=== PATIENT | male | born 1990 | race Two or more races ===

== ENCOUNTER 2018-08-10 17:39 | Emergency (ER) | payer SELFPAY ==
[~2018-08-10] VITALS: Ht 172.7 cm; Wt 81.6 kg
[2018-08-10 18:00] VITALS: BP 148/98
--- NOTE | 2018-08-10 18:41 | PHYS DOC ---
Adult General Chief Complaint Chief Complaint: MECHANICAL FALL HPI HPI Patient is a 28 year old medical presents with intermittent, throbbing mild low back pain status post falling last week Friday. He states he was on a ladder 6 steps when he fell on her left leg on pallets on the ground. Denies any loss of consciousness. States pain is worse on sitting o his buttocks.Denies any pain radiating to BLE. Denies any numbness or tingling to bilateral lower extremities. Patient denies any hematuria. (YING ANNE APRN) Review of Systems Review of Systems Constitutional: Denies fever or chills [] GI: Denies abdominal pain, nausea, vomiting, bloody stools or diarrhea [] : Denies dysuria or hematuria [] Musculoskeletal: Reports low back pain Integument: Denies rash or skin lesions [] Neurologic: Denies headache, focal weakness or sensory changes [] All other systems were reviewed and found to be within normal limits, except as documented in this note. (YING ANNE APRN) Allergies Allergies Allergies Coded Allergies Type Severity Reaction Last Updated Verified No Known Drug Allergies 08/10/18 No (JOEL BELCHER DO) Physical Exam Physical Exam Constitutional: Well developed, well nourished, no acute distress, non-toxic appearance. [] Abdomen: Bowel sounds normal, soft, no tenderness, no masses, no pulsatile masses. [] Skin: Warm, dry, no erythema, no rash. [] Back: Diffuse paraspinal muscle tenderness to the lumbar spine, most of the tenderness is over the coccyx. No CVA tenderness. [] Extremities: No tenderness, no cyanosis, no clubbing, ROM intact, no edema. [] Neurologic: Alert and oriented X 3, normal motor function, normal sensory function, no focal deficits noted. [] Psychologic: Affect normal, judgement normal, mood normal. [] (YING ANNE APRN) Current Patient Data Vital Signs Vital Signs Date Time Temp Pulse Resp B/P (MAP) Pulse Ox O2 Delivery O2 Flow Rate FiO2 08/10/18 18:00 98.0 61 16 148/98 (115) 98 Room Air 98.0 (JOEL BELCHER DO) EKG EKG [] (YING ANNE APRN) Radiology/Procedures Radiology/Procedures []PROCEDURE: CT LUMBAR SPINE WO CONTRAST PQRS Compliance statement: One or more of the following individualized dose reduction techniques were utilized for this examination: 1. Automated exposure control. 2. Adjustment of the mA and/or kV according to patient size. 3. Use of iterative reconstruction technique. Indication:coccyx pain and low back pain, fall TECHNIQUE: CT lumbar spine without IV contrast with multiplanar reformats. COMPARISON: None FINDINGS: Lumbar spine is in normal anatomic alignment. There are 5 lumbar type vertebral bodies. No compression deformity. Nondisplaced fracture is seen of the first coccygeal vertebral body. SI joints within normal limits. No neuroforamina narrowing or evidence of degenerative disc disease. IMPRESSION: Nondisplaced hairline fracture through the first coccygeal vertebral body. Electronically signed by: Sorin Tang DO (08/10/2018 7:08 PM) [facility] DICTATED and SIGNED BY: SORIN TANG DO DATE: 08/10/18 190 (YING ANNE APRN) Course & Med Decision Making Course & Med Decision Making Pertinent Labs and Imaging studies reviewed. (See chart for details) This is a 28-year-old male patient presenting to the ED today with low back pain status post falling off a 6 step ladder last week on Friday. Lumbar spine CT Nondisplaced hairline fracture through the first coccygeal vertebral body. Patient was discharged with instructions to get a doughnut cushion to sit on. Given pain relievers for home. Follow-up with PCP or neurosurgery as needed. (YING ANNE APRN) Dragon Disclaimer Dragon Disclaimer This electronic medical record was generated, in whole or in part, using a voice recognition dictation system. (YING ANNE APRN) Departure Departure Impression: Primary Impression: Fall Additional Impression: Fractured coccyx Disposition: HOME, SELF-CARE Condition: STABLE Referrals: NO PCP (PCP) CAT PATEL MD follow up in 1-2 weeks as needed Patient Instructions: Fall Prevention and Home Safety Additional Instructions: You were evaluated in the emergency room and noted to have a coccyx fracture. Get a doughnut cushion to sit on. Ice and elevate the area. Take the prescribed pain medicine as needed. Follow-up with your doctor in 1-2 weeks as needed. Scripts Naproxen (NAPROXEN) 500 Mg Tablet 1 TAB PO BID, #60 TAB 1 Refill Prov: YING ANNE BRASS SORTER 08/10/18 Cyclobenzaprine Hcl (CYCLOBENZAPRINE HCL) 10 Mg Tablet 1 TAB PO TID, #30 TAB Prov: YING ANNE BRASS SORTER 08/10/18 Hydrocodone/Apap 5-325 (NORCO 5-325 TABLET) 1 Each Tablet 1 TAB PO Q4-6HRS, #20 TAB Prov: YING ANNE AARON 08/10/18 Attending Signature Attending Signature I have reviewed the PA/BILLET SAWYER's note and plan of care. I was available for consultation as needed during the patient's visit in the emergency department. I agree with the clinical impression, plan, and disposition. (JOEL BELCHER DO) Problem Qualifiers Primary Impression: Fall Encounter type: initial encounter Qualified Codes: W19.XXXA - Unspecified fall, initial encounter Additional Impression: Fractured coccyx Encounter type: initial encounter Fracture type: closed Qualified Codes: S32.2XXA - Fracture of coccyx, initial encounter for closed fracture YING ANNE AARON Aug 10, 2018 18:41 JOEL BELCHER DO Aug 30, 2018 12:35
--- NOTE | 2018-08-10 19:11 | RAD ---
PQRS Compliance statement: One or more of the following individualized dose reduction techniques were utilized for this examination: 1. Automated exposure control. 2. Adjustment of the mA and/or kV according to patient size. 3. Use of iterative reconstruction technique. Indication:coccyx pain and low back pain, fall TECHNIQUE: CT lumbar spine without IV contrast with multiplanar reformats. COMPARISON: None FINDINGS: Lumbar spine is in normal anatomic alignment. There are 5 lumbar type vertebral bodies. No compression deformity. Nondisplaced fracture is seen of the first coccygeal vertebral body. SI joints within normal limits. No neuroforamina narrowing or evidence of degenerative disc disease. IMPRESSION: Nondisplaced hairline fracture through the first coccygeal vertebral body. Electronically signed by: Sorin Tang DO (08/10/2018 7:08 PM) [facility]
[2018-08-10] MEDS ORDERED: CYCL10TA2 PO (19:50)
[2018-08-10] MEDS ORDERED: NAPR-514 PO (19:50)
[2018-08-10] MEDS ORDERED: HYDR-3164 PO (19:50)
== END 2018-08-10 20:08 | disposition home or self-care (01) ==
LOC: ER 17:39
DX: S32.2XXA Fracture of coccyx, initial encounter for closed fracture (principal); M54.5 Low back pain; W11.XXXA Fall on and from ladder, initial encounter; Y93.89 Activity, other specified; Y92.89 Other specified places as the place of occurrence of the external cause; Y99.8 Other external cause status
CPT/HCPCS: 72131; 99284-25